=== PATIENT | female | born 1975 | race Caucasian/White ===

== ENCOUNTER 2023-03-19 00:35 | Day surgery (SDC) | payer BC, SELFPAY ==
--- NOTE | 2023-03-12 08:42 | PC.NURSE ---
Report to the Outpatient Waiting Room, entrance under the green pavilion located off [facility], at time _1000__ on date _03/19/23__. Planned Procedure Time: _1200__. Time changes happen often and if your time is changed the preop area will call you the afternoon before. - You and your visitor will be asked to self-screen and do not enter if you have any COVID symptoms. - A mask is optional within the hospital at this time. Patients may have clear liquids (water, carbonated beverages, clear teas, apple juice) until 3 hours prior to surgery with a maximum of 20 ounces. stop by 0900. - No food from midnight until time of surgery Take the following medications with a SIP of water the morning of surgery: _none____ DO NOT STOP ANY OF YOUR OTHER PRESCRIPTION MEDICATIONS PRIOR TO SURGERY ?EXCEPT THE FOLLOWING Medications to discontinue per physician Date to take last dose Please no make-up, nail occitan, hairspray, perfume, deodorant, or body powder the day of surgery. No jewelry (including any body piercings) or valuables the day of surgery, leave them at home. Please take a shower or bath the night before, or the morning of, surgery with an antibacterial soap. Wear comfortable, loose fitting clothing. Children are encouraged to wear pajamas. - Jewelry must be removed prior to entering the operating room. Rings and piercings that are not removed may be cut off. - The hospital will not accept responsibility for valuables. - Please leave all valuables, including medications, at home the day of surgery. If you are going home after surgery, a licensed milk delivery driver must drive you home. - NO public transportation without another adult if you receive anesthesia. - We recommend that an adult stay with you for 24 hours following discharge. - We also recommend that you do not drive, make important decision, drink alcoholic beverages, or take any drugs that were not prescribed by your health care provider for at least 24 hours after your discharge time. For Pediatric surgeries, we recommend two adults accompany the child home. Follow any additional instructions given to you from your surgeon. If you or anyone in your household have experienced Covid symptoms in the past week, please notify your surgeon or the nurse liaison at the phone number below for possible testing. Telephone instructions given to _Jose__and asked if any additional questions and then verbalized understanding. Patient advised to call surgeon office or pre surgery nurse liaison [phone] if any additional questions.
[2023-03-12 08:57] VITALS: BMI 26.2
--- NOTE | 2023-03-18 22:50 | PM.IMHP ---
H&P: HPI History of Present Illness Date/Time: 03/18/23 22:50 Chief Complaint: Heavy bleeding Narrative: 47 y/o who has heavy menses on a monthly basis. She has had significant anemia and has been taking iron supplementation. She is not sexually active and has declined contraception. She would like surgical management of her problem. Review of Systems Review of Systems: All systems reviewed & are unremarkable except as noted in HPI and below PMFSH Past Medical History Medical History Anxiety Gastroesophageal reflux disease Iron deficiency anemia Migraine Surgical History Surgical History Hx of tonsillectomy (~1996) Social History Social History Smoking status: Never smoker Second hand tobacco smoke exposure: No Alcohol intake: current Drinks per week: 1 Substance use: never Substance use type: does not use Lack of Transportation: No Lack of Food: Never True Current Housing: I Have Housing Concerned About Future Housing: No Difficulty Paying Gas/Electric Bills: No Difficulty Paying for Meds: No Currently Unemployed: No Education: Master's Degree or Higher Difficulty w/ Childcare or Family Care: No Living arrangements: with family Gender identity (if verbalized by the patient): Male Sexual Orientation (if Verbalized by the Patient): Straight or Heterosexual Spiritual care concerns: No Agree to blood products: Yes Meds Home Medications and Allergies Home Medications Medication Instructions Recorded Confirmed Type sumatriptan succinate 50 mg tablet See Rx Instructions PO .COMPLEX #7 06/29/19 03/12/23 Rx tabs buspirone 5 mg tablet 5 mg PO TID PRN stress #60 tabs 04/14/20 03/12/23 Rx ferrous sulfate 325 mg (65 mg 325 mg PO QMWF 01/22/23 03/12/23 History iron) tablet (Feosol) esomeprazole magnesium 40 mg 40 mg PO DAILY 03/12/23 03/12/23 History capsule,delayed release Allergies Allergy/AdvReac Type Severity Reaction Status Date / Time bacitracin Allergy Mild Other Verified 03/12/23 08:29 [From Neosporin ([id number])] neomycin Allergy Mild Unknown Verified 01/21/23 09:54 [From Neosporin ([id number])] polymyxin B Allergy Mild Unknown Verified 01/21/23 09:54 [From Neosporin ([id number])] Exam Const: Orientation/consciousness: patient oriented x3 Other: Well-developed, well-nourished female in no acute distress. Neck: Thyroid: thyroid normal Lymphatic: no lymphadenopathy noted (in neck, axilla or inguinal nodes) Resp: Effort & Inspection: normal respiratory effort Auscultation: clear to auscultation bilaterally Cardio: Rate: regular rate Rhythm: regular rhythm Heart sounds: S1 normal heart sound present and S2 normal heart sound present GI: Other: ABD: Soft, nontender, nondistended. No guarding or rebound tenderness. No hepatosplenomegaly. : General: Yes no CVA tenderness Other: External genitalia: normal female hair distribution, without lesion. Urethral meatus: no lesion, non prolapsed. Bladder: no mass, nontender Vagina: well-estrogenized, without lesion or discharge. No cystocele or rectocele. Cervix: no lesion or discharge. Uterus: small, anteverted, freely mobile, nontender Adnexa: no mass or tenderness. Anus/perineum: no lesions, nontender Back/Spine/Pelvis: Back: no CVA tenderness Skin: General skin exam: normal color and no rashes or lesions noted Neuro: General: patient oriented x3 Extrem: Other: Extremities: nontender with no edema Psych: Mental Status: mental status grossly normal Affect: normal affect Assessment and Plan Assessment and plan (1) Menorrhagia: Code(s): N92.0 - Excessive and frequent menstruation with regular cycle Status: Acute Assessment a
[2023-03-19] MEDS: LACTATED RINGERS 1,000 ML 30 ML IV CONT (11:00)
[2023-03-19 11:30] VITALS: BP 165/109; PULSE 112; RESP 14; TEMP 36.8; O2SAT 99
--- NOTE | 2023-03-19 11:42 | WPDHPUPDATE1 ---
History and Physical Update Update Date/Time: 03/19/23 11:42 History and Physical has been reviewed, including an updated exam of the patient. There are NO changes in the patient's condition. Risks, benefits, and alternatives have been discussed and questions answered. Patient agrees to proceed with procedure.
[2023-03-19 11:45] VITALS: BP 144/94; PULSE 98
--- NOTE | 2023-03-19 11:57 | WPDANESEPPF ---
Anes - Initial Pre Proc Eval Procedure: Operation Date: 03/19/23 12:00 Proposed Procedures p Hysteroscopy, Dilation and Curettage, Darcy Endometrial Ablation - Jad Chris MD Date/Time: 03/19/23 11:57 Surgeon: Jad Chris MD Pre Op Diagnosis: heavy bleeding, anemia Patient Data Age: 47 Gender: F Height: 1.74 m Weight: 79.75 kg Last Vital Signs Temp 36.8 C 03/19/23 11:30 Pulse 98 03/19/23 11:45 Resp 14 03/19/23 11:30 BP 144/94 H 03/19/23 11:45 Pulse Ox 99 03/19/23 11:30 O2 Del Method Room Air 03/19/23 11:30 Allergies Allergy/AdvReac Type Severity Reaction Status Date / Time bacitracin Allergy Mild Other Verified 03/19/23 11:38 [From Neosporin ([id number])] neomycin Allergy Mild Unknown Verified 03/19/23 11:38 [From Neosporin ([id number])] polymyxin B Allergy Mild Unknown Verified 03/19/23 11:38 [From Neosporin ([id number])] Home Medications Medication Instructions Recorded Confirmed Type sumatriptan succinate 50 mg tablet See Rx Instructions PO .COMPLEX #7 06/29/19 03/19/23 Rx tabs buspirone 5 mg tablet 5 mg PO TID PRN stress #60 tabs 04/14/20 03/19/23 Rx ferrous sulfate 325 mg (65 mg 325 mg PO QMWF 01/22/23 03/19/23 History iron) tablet (Feosol) esomeprazole magnesium 40 mg 40 mg PO DAILY 03/12/23 03/19/23 History capsule,delayed release Patient hx anesthesia problems: none Family hx anesthesia problems: none Results Review: All pre-operative results and documents have been reviewed as part of the pre-operative evaluation. [facility] Past Medical History Medical History Anxiety Gastroesophageal reflux disease Iron deficiency anemia Migraine Surgical History Surgical History Hx of tonsillectomy (~1996) Social History Social History Smoking status: Never smoker Second hand tobacco smoke exposure: No Alcohol intake: current Drinks per week: 1 Substance use: never Substance use type: does not use Lack of Transportation: No Lack of Food: Never True Current Housing: I Have Housing Concerned About Future Housing: No Difficulty Paying Gas/Electric Bills: No Difficulty Paying for Meds: No Currently Unemployed: No Education: Master's Degree or Higher Difficulty w/ Childcare or Family Care: No Living arrangements: with family Gender identity (if verbalized by the patient): Male Sexual Orientation (if Verbalized by the Patient): Straight or Heterosexual Spiritual care concerns: No Agree to blood products: Yes Anes - Eval Final PreProcedure Day of Procedure 03/19/23 11:57 Patient weight: overweight Heart: regular rate and rhythm Lungs: clear to auscultation Airway: Mallampati scale class II Neurological: alert and oriented Last oral intake: >/= 8 hours ASA classification: II Emergent: no Anesthetic plan: proceed Anesthesia type and monitoring: general GIVS and standard monitoring Results Review: All pre-operative results and documents have been reviewed as part of the pre-operative evaluation. Informed Consent: The patient's anesthetic plan and its attendant risks and benefits were discussed with the patient/family/POA. Questions were solicited and answers provided to the satisfaction of the patient/family/POA.
--- NOTE | 2023-03-19 12:31 | P.OP_ITS ---
Procedure Note - Detailed Date of Procedure 03/19/23 Pre-op Diagnosis Menometrorrhagia Anemia Post-op Diagnosis Same Procedure Performed Hysteroscopy Dilation and sharp curettage Endometrial ablation Surgeon Jad Chris MD Anesthesia MAC and Local (1% lidocaine ) Findings Uterus sounded to a depth of 10 cm with a cervical length of 3.5 cm. Endometrial cavity unremarkable. Both tubal ostia seen. Description of Procedure The patient was taken to the operating room where she was prepared and draped in the usual sterile fashion in the dorsal lithotomy position. The bladder was drained with a red rubber catheter. A sterile speculum was placed into the v agina. The anterior lip of the cervix was grasped with single-tooth tenaculum. Ten mL of 1% lidocaine was administered in a paracervical block. The cervix was then gently dilated using Hegar dilators until an 8 mm dilator could be passed. Hysteroscopy was performed using sterile saline as a distention medium. Findings are as noted above. Sharp curettage was then performed, and endometrial curettings were collected on a Telfa pad and passed off to be sent to pathology. Finally, the the Darcy device was advanced and endometrial ablation commenced without difficulty. The device was withdrawn and a second look was taken using the hysteroscope. Excellent coverage of the endometrial cavity was noted. The tenaculum was removed. Hemostasis was excellent. Sponge, lap, needle and instrument counts were correct. The patient was awakened and taken to the recovery room in stable condition. I was present and scrubbed through the entire procedure. Implants None Estimated Blood Loss 5 Drains No Packing No Pathology Yes (Endometrial curettings) Complications None Condition Stable Disposition PACU
[2023-03-19 12:35] VITALS: BP 143/90; PULSE 86; RESP 14
[2023-03-19 13:00] VITALS: BP 153/102; PULSE 80; RESP 14
[2023-03-19 13:30] VITALS: BP 168/99; PULSE 72; RESP 15
[2023-03-19 13:40] VITALS: BP 161/98; PULSE 77; RESP 14
== END 2023-03-19 13:45 | disposition home or self-care (01) ==
PROVIDERS: PCP Family Medicine; Visit Provider Obstetrics & Gynecology
PROC: 0U5B8ZZ Destruction of Endometrium, Via Natural or Artificial Opening Endoscopic (ICD-10-PCS; CPT 58563; principal; 2023-03-19 12:00)
DX: N92.1 Excessive and frequent menstruation with irregular cycle (principal); K21.9 Gastro-esophageal reflux disease without esophagitis; D50.9 Iron deficiency anemia, unspecified; F41.9 Anxiety disorder, unspecified
CPT/HCPCS: 58563; 88305; A9270; J2250; J3010; J7120

== ENCOUNTER 2023-04-24 17:10 | Outpatient (CLI) | payer BC, SELFPAY ==
[2023-04-24 17:30] LABS: Hematocrit 46.4 % (37.0-47.0); Hemoglobin 15.2 g/dL (12.0-15.0); Mean Corpuscular HGB Conc 32.8 g/dl (32-36); Mean Corpuscular Hemoglobin 30.6 pg (26-34); Mean Corpuscular Volume 93.5 fl (80-100); Mean Platelet Volume 8.7 fl (7.4-10.4); Platelet Count Result 295 k/mm3 (150-375); Red Blood Count 4.96 M/mm3 (4.2-5.4); Red Cell Distribution Width 13.4 % (11.5-14.5); White Blood Count 6.1 K/mm3 (4.5-10.0)
[2023-04-24 17:47] LABS: Iron 62 ug/dL (37-170)
[2023-04-24 17:57] LABS: Percent Iron Saturation 20 % (20-50)
== END 2023-04-24 17:11 | disposition home or self-care (01) ==
LOC: ANHLAB 17:14
PROVIDERS: PCP Family Medicine; Visit Provider Physician Assistant
DX: D64.9 Anemia, unspecified (principal)
CPT/HCPCS: 36415; 82728; 83540; 83550; 85027

== ENCOUNTER → 2023-05-26 10:35 | Outpatient (CLI) | payer BC, SELFPAY ==
--- NOTE | ~2023-05-26 | MM_ITS ---
EXAMINATION: MM screening vandana BI w tanvi HISTORY: Screening mammogram TECHNIQUE: Craniocaudal and mediolateral oblique 3-D tomosynthesis images were obtained and synthetic 2-D images were generated. CAD analysis was submitted and interpreted. COMPARISON: No prior mammogram is available for comparison at this institution. BREAST PARENCHYMAL COMPOSITION: There are scattered areas of fibroglandular density. FINDINGS: RIGHT BREAST: No suspicious mass, calcification, or architectural distortion are identified to sugges t malignancy. LEFT BREAST: There is a possible mass in the middle third of the upper inner quadrant of the breast a pproximately 7 cm from the nipple. IMPRESSION: 1. Possible left breast mass which may represent the patient's baseline however no comparison is curr ently available. 2. Comparison with prior mammograms is necessary. BI-RADS Category 0: Incomplete: Needs comparison with prior mammograms. Reviewed, dictated and finalized at location A. IMPRESSION: 1. Possible left breast mass which may represent the patient's baseline however no comparison is currently available. 2. Comparison with prior mammograms is necessary. BI-RADS Category 0: Incomplete: Needs comparison with prior mammograms.
== END ==
PROVIDERS: PCP Obstetrics & Gynecology; Visit Provider Obstetrics & Gynecology
DX: Z12.31 Encounter for screening mammogram for malignant neoplasm of breast (principal); R92.8 Other abnormal and inconclusive findings on diagnostic imaging of breast
CPT/HCPCS: 77063; 77067

== ENCOUNTER 2024-12-10 10:37 | Outpatient (CLI) | payer BC, SELFPAY ==
--- NOTE | ~2024-12-10 | MM_ITS ---
EXAMINATION: MM screening vandana BI w tanvi HISTORY: Screening TECHNIQUE: Craniocaudal and mediolateral oblique 3-D tomosynthesis images were obtained and synthetic 2-D images were generated. CAD analysis was submitted and interpreted. COMPARISON: Comparison to multiple prior studies sequentially, with oldest reviewed study dated 02/03. BREAST PARENCHYMAL COMPOSITION: Dense: The breasts are heterogeneously dense, which may obscure small masses FINDINGS: There is a developing mass in the lower outer quadrant of the left breast The right breast is stable without evidence for malignancy. IMPRESSION: 1. Developing left breast mass, lower outer quadrant, middle third.. 2. Additional mammographic views and possible breast ultrasound are recommended. BI-RADS Category 0: Incomplete: Needs additional imaging evaluation. Reviewed, dictated and finalized at location A. IMPRESSION: 1. Developing left breast mass, lower outer quadrant, middle third.. 2. Additional mammographic views and possible breast ultrasound are recommended . BI-RADS Category 0: Incomplete: Needs additional imaging evaluation.
== END 2024-12-10 10:38 | disposition home or self-care (01) ==
PROVIDERS: PCP Family Medicine; Visit Provider Obstetrics & Gynecology
DX: Z12.31 Encounter for screening mammogram for malignant neoplasm of breast (principal); R92.8 Other abnormal and inconclusive findings on diagnostic imaging of breast
CPT/HCPCS: 77063; 77067

== ENCOUNTER 2024-12-30 08:50 | Outpatient (CLI) | payer BC, SELFPAY ==
--- NOTE | ~2024-12-30 | MM_ITS ---
Examination: MM diagnostic RASHMI LT W tanvi INDICATION: 49-year old female; BI-RADS 0, callback to evaluate Left breast mass COMPARISON: 12/10/2024 TECHNIQUE: Digital breast tomosynthesis True lateral view and spot compression pain CC and MLO views of Left breast were obtained with computer-aided detection to assist in interpretation of the study. FINDINGS: The breasts are heterogeneously dense, which may obscure small masses. The lesion seen in the lower outer Left breast breast on the screening mammogram does not persist wit h additional views, compatible with superimposition of fibroglandular tissue.. IMPRESSION: Left breast lesion represents superimposition of fibroglandular tissue. No further investigation nece ssary. RECOMMENDATION: Annual screening mammography in 12 months BI-RADS 2, BENIGN Reviewed, dictated and finalized at location [] IMPRESSION: Left breast lesion represents superimposition of fibroglandular tissue. No furt her investigation necessary. RECOMMENDATION: Annual screening mammography in 12 months BI-RADS 2, BENIGN
== END 2024-12-30 08:51 | disposition home or self-care (01) ==
LOC: MICIMG 08:51
PROVIDERS: PCP Family Medicine; Visit Provider Obstetrics & Gynecology
DX: R92.8 Other abnormal and inconclusive findings on diagnostic imaging of breast (principal)
CPT/HCPCS: 77061; 77065; G0279